=== PATIENT | male | born 1995 | race Caucasian/White ===

== ENCOUNTER 2017-05-13 12:11 | Emergency (ER) | payer OTHER ==
[~2017-05-13] VITALS: Ht 175.3 cm; Wt 96.9 kg
[2017-05-13 12:14] VITALS: TEMP 36.4; Ht 175.3 cm; Wt 96.9 kg
[2017-05-13] MEDS ORDERED: PROPARACAINE HCL 0.5% OP SOLN 15 ML BTL ONE (12:49)
[2017-05-13] MEDS ORDERED: CIPR0.3S OP (13:03)
[2017-05-13] MEDS ORDERED: HYDR-5688 PO (13:03)
[2017-05-13 13:11] VITALS: BP 122/70; PULSE 58; O2SAT 99
--- NOTE | 2017-05-13 21:34 | EMERGENCY ROOM VISIT NOTE ---
ED Visit Note First contact with patient: 12:44 Chief Complaint: Right eye irritation. History of Present Illness: Mr. Emery is a 22-year-old male who ambulates into the ED accompanied by male friend complaining of right eye irritation and foreign body sensation under the upper eyelid. 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 He does report he was wearing eye protection but then felt like a piece of metal might of gotten in his eye. This started approximately 2 hours ago. Currently he is complaining of right eye pain. He is unable to describe his discomfort. He rates his discomfort 7/10. The pain is nonradiating. He has not identified any aggravating or alleviating factors related to the pain. He has not taken any medications for pain prior to arrival at the hospital. Associated with his pain he reports mild light sensitivity and tearing. He has not identified any alleviating factors related to the pain. He denies any associated fevers, chills, sweats, skin eruptions, skin color changes, headaches, visual changes, nausea/vomiting. Review of Systems: As noted above in history of present illness. Past Medical History: Unspecified left leg surgery. Current Medications: Patient denies. Allergies to Medications: Patient denies. Social History: Patient is currently employed; he feels safe in his home environment; he denies tobacco and alcohol use. Physical Examination: Vital Signs: Date Time Temp Pulse Resp B/P (MAP) Pulse Ox O2 Delivery O2 Flow Rate FiO2 05/13/17 13:11 58 18 122/70 99 Room Air 05/13/17 12:14 36.4 61 16 130/77 99 Room Air GENERAL: 22-year-old male in mild distress due to pain, nontoxic-appearing, afebrile and hemodynamically stable. NEUROLOGICAL: Awake, alert and oriented to person, place and time. Answering questions appropriately and following commands. SKIN: Warm, dry and pink. No soft tissue eruptions or trauma noted. HEENT: Atraumatic and normocephalic. PERRLA. EOMI. Sclera injected and conjunctiva pink with drainage of clear tears in the right eye. No foreign bodies noted under the eyelids are embedded in the cornea. The anterior chamber is clear. Visual acuity: 20/20 bilaterally without correction. ED Course: Patient is assessed as noted above. Patient's medication list was reviewed. Alcaine was used to anesthetize the eye for examination. Under slit lamp examination with staining patient had a corneal abrasion at the 7 o'clock position but no foreign bodies were noted. Patient was educated about today's findings and instructed on his treatment plan ; he verbalizes understanding and agreement with this plan. Clinical Impression: Right corneal abrasion. Disposition: Patient discharged home in stable condition; prior to departure he was reassessed and subjectively reported that he was pain-free. Plan: Patient was placed on a sliding pain medication scale of ibuprofen, acetaminophen and [place]; he was given appropriate precautions for narcotic use and his name was checked on the state database and no red flags were identified. Patient was prescribed Ciloxan ophthalmic solution encouraged to use 2 drops every 4 hours while awake for 5 days. Patient was encouraged to follow-up with Work[employer] Compensation for recheck of his injury and 36-48 hours. Patient was encouraged return ED for worsening/uncontrolled pain, fevers, headaches, vomiting or any new/concerning symptoms.
== END 2017-05-13 13:12 | disposition home or self-care (01) ==
LOC: C.EDB 12:16 → C.EDD 13:12
DX: H57.8 Other specified disorders of eye and adnexa (principal); S05.01XA Injury of conjunctiva and corneal abrasion without foreign body, right eye, initial encounter; X58.XXXA Exposure to other specified factors, initial encounter; Y99.0 Civilian activity done for income or pay